=== PATIENT | male | born 1955 | race Caucasian/White ===

== ENCOUNTER 2017-07-31 07:23 | Day surgery (SDC) | payer BC ==
[2017-07-31] MEDS ORDERED: Versed 2 MG/2 ML Injection IV ONE (08:00)
[2017-07-31] MEDS ORDERED: Decadron 4 MG INJ IV ONE (08:00)
[2017-07-31] MEDS ORDERED: DIPRIVAN 200 MG/20 ML IV ONE (08:00)
[2017-07-31] MEDS ORDERED: Zemuron 100 MG/10 ML IJ ONE (08:00)
[2017-07-31] MEDS ORDERED: BRIDION 200MG/2ML IV ONE (08:00)
[2017-07-31] MEDS ORDERED: Quelicin Fliptop 200 MG/10 ML IJ ONE (08:00)
[2017-07-31] MEDS ORDERED: SUBLIMAZE 250 MCG/5 ML IJ ONE (08:00)
[2017-07-31] MEDS ORDERED: TORAdol 30 mg Injection IJ ONE (08:00)
[2017-07-31] MEDS ORDERED: Zofran 4 MG/2 ML VIAL IV ONE (08:00)
[2017-07-31] MEDS ORDERED: MEFOXIN 2 GM PREMIX** 2 GM/50 ML ML IV ONE ×2 (08:14→08:30)
[2017-07-31] MEDS ORDERED: Lactated Ringers 1,000 ML IV ONE (08:14)
[2017-07-31] MEDS ORDERED: Sensorcaine 0.25% 10 ML ONE (08:20)
[2017-07-31] MEDS ORDERED: Lactated Ringers 1,000 ML IV SCH (08:30)
[2017-07-31] MEDS ORDERED: SUBLIMAZE 100 MCG/2 ML ONE (10:29)
[2017-07-31 12:28] VITALS: BP 148/69; PULSE 68; O2SAT 97
--- NOTE | 2017-08-01 08:38 | OP ---
SURGERY DATE/TIME: 07/31/2017914 PREOPERATIVE DIAGNOSIS: Cholecystitis and sludge. POSTOPERATIVE DIAGNOSIS: Cholecystitis and sludge. PROCEDURE: Laparoscopic cholecystectomy. SURGEON: Dr. Forman. ANESTHESIA: General endotracheal tube. ESTIMATED BLOOD LOSS: Minimal. COMPLICATIONS: None. CONDITION: Stable. INDICATIONS: A patient with upper abdominal pain. Ultrasound showing a generous amount of sludge. Options discussed with him and he wished to proceed. He has had multiple episodes of right upper quadrant discomfort to the scapula. No history of ulcer disease. He is taken to surgery. DESCRIPTION OF PROCEDURE AND FINDINGS: General anesthetic, routine prep and drape. He had a previous umbilical hernia and right upper quadrant Veress needle was placed. Insufflating pressure 14. A 5 trocar introduced. No blood on the site. No issue. Three additional 5's were placed strategically a little bit away from the previous umbilical field. Gallbladder was thickened. It was distended. Infundibulum had some inflammation. It was dissected. Cystic duct defined. Cystic artery defined. Both structures triply clipped and transected. Clips noted to be across and well approximated. Gallbladder rolled out of gallbladder fossa. The gallbladder delivered through upper abdominal port where it was suctioned. It was somewhat thickened and the hole was widened slightly. A hole closure device was used. A hole closure device was used also by the periumbilical port even though it had not been widened, there was a little dry stasis in this area and even the 5 hole was very deliberately closed. Skin closed with 4-0 Vicryl. CO2 had been extubated. The field was totally dry. The patient tolerated the procedure satisfactorily. Findings discussed with the family in the waiting room.
== END 2017-07-31 12:00 | disposition home or self-care (01) ==
LOC: SDC 07:23
PROVIDERS: ATTEND Surgery
PROC: 0FT44ZZ Resection of Gallbladder, Percutaneous Endoscopic Approach (ICD-10-PCS; principal; 2017-07-31)
DX: K81.9 Cholecystitis, unspecified (principal); E88.89 Other specified metabolic disorders; E11.9 Type 2 diabetes mellitus without complications
CPT/HCPCS: 00790; 36415; 88304; J0330; J0694; J1100; J1885; J2250; J2405; J2704; J3010